=== PATIENT | male | born 1975 | race American Indian/Alaskan Native ===

== ENCOUNTER 2018-05-14 21:39 | Emergency (ER) | payer OTHER ==
[2018-05-14] MEDS ORDERED: DUONEB *Not for PRN Use IH ONE ×2 (21:46→22:03)
[2018-05-14] MEDS ORDERED: DELTASONE PO ONE (22:03)
--- NOTE | 2018-05-15 02:07 | Emergency Department Report ---
Upper Respiratory HPI - HPI Chief Complaint: Adult Asthma Stated Complaint: CP Time Seen by Provider: 05/15/18 01:50 URI Symptoms: Rhinorrhea: No, Sore Throat: No, Ear Pain: No, Cough: Yes, Shortness of Breath: Yes, Sick Contacts: No, Unable to Take Fluids: No, Urine Output Abnormal: No, Listless Behavior: No Other History: Patient states asthma attack today after environmental exposure patient has been out of her bit her on an inhaler for the last 2 weeks however symptoms have resolved after albuterol treatment given in triage today - Home Meds and Allergies Home Medications: Home Medications Medication Instructions Recorded Confirmed Last Taken ALBUTEROL Inhaler [Proair] 2 puff IH QID PRN 05/14/18 05/14/18 Unknown Previous Rx's Medication Instructions Recorded Last Taken Type ALBUTEROL Inhaler [ProAir HFA 2 puff IH QID PRN #1 inhalation 05/15/18 Unknown Rx Inhaler] Ibuprofen 800 mg PO TID PRN #30 tablet 05/15/18 Unknown Rx predniSONE [Deltasone] 40 mg PO QDAY 5 Days #10 tab 05/15/18 Unknown Rx Allergies/Adverse Reactions: Allergies Allergy/AdvReac Type Severity Reaction Status Date / Time No Known Allergies Allergy Verified 05/14/18 22:38 ED Review of Systems ROS: Stated complaint: CP Other details as noted in HPI Constitutional: denies: chills, fever Eyes: denies: eye pain, eye discharge, vision change ENT: denies: ear pain, throat pain Respiratory: cough, shortness of breath, wheezing Cardiovascular: denies: chest pain, palpitations Endocrine: no symptoms reported Gastrointestinal: denies: abdominal pain, nausea, diarrhea Genitourinary: denies: urgency, dysuria Musculoskeletal: denies: back pain, joint swelling, arthralgia Skin: denies: rash, lesions Neurological: denies: headache, weakness, paresthesias Psychiatric: denies: anxiety, depression Hematological/Lymphatic: denies: easy bleeding, easy bruising ED Past Medical Hx - Past Medical History Hx Asthma: Yes - Surgical History Past Surgical History?: No - Social History Smoking Status: Current Every Day Smoker Substance Use Type: None - Medications Home Medications: Home Medications Medication Instructions Recorded Confirmed Last Taken Type ALBUTEROL Inhaler [Proair] 2 puff IH QID PRN 05/14/18 05/14/18 Unknown History ALBUTEROL Inhaler [ProAir HFA 2 puff IH QID PRN #1 inhalation 05/15/18 Unknown Rx Inhaler] Ibuprofen 800 mg PO TID PRN #30 tablet 05/15/18 Unknown Rx predniSONE [Deltasone] 40 mg PO QDAY 5 Days #10 tab 05/15/18 Unknown Rx ED Bronchiolitis Physical Exam - Exam General: Vital signs noted. No distress. Alert and acting appropriately. HEENT: Yes Pharyngeal Erythema, No Conjuctival Injection, No Dry Mucous Membranes, No Rhinorrhea Ear: Neither TM Bulge, Neither TM Erythema, Neither EAC Discharge Neck: No Adenopathy, No Rigidity Lungs: Yes Clear Lung Sounds, Yes Good Air Exchange, No Wheezes, No Stridor, No Cough, No Nasal Flaring, No Retractions, No Use of Accessory Muscles Heart: Yes Regular, No Murmur Abdomen: Yes Normal Bowel Sounds, No Tenderness, No Peritoneal Signs Skin: No Rash, No Eczema Neurologic: Alert and oriented, no deficits. Musculoskeletal: Unremarkable. ED Physical Exam - General Limitations: No Limitations General appearance: alert, in no apparent distress - Head Head exam: Present: atraumatic, normocephalic - Eye Eye exam: Present: normal appearance, PERRL, EOMI Pupils: Present: normal accommodation - ENT ENT exam: Present: normal orophraynx, mucous membranes moist, TM's normal bilaterally, normal external ear exam - Neck Neck exam: Present: normal inspection, full ROM. Absent: tenderness, lymphadenopathy, thyromegaly - Respiratory Respiratory exam: Present: normal lung sounds bilaterally. Absent: respiratory distress, wheezes, rhonchi, stridor, chest wall tenderness - Cardiovascular Cardiovascular Exam: Present: regular rate, normal rhythm. Absent: normal heart sounds, systolic murmur, diastolic murmur, rubs, gallop - GI/Abdominal GI/Abdominal exam: Present: soft, normal bowel sounds. Absent: distended, tenderness, guarding, rebound, rigid, organomegaly, mass, bruit, pulsatile mass , hernia - Rectal Rectal exam: Present: deferred - Extremities Exam Extremities exam: Present: normal inspection, full ROM, normal capillary refill. Absent: tenderness, pedal edema, joint swelling, calf tenderness - Back Exam Back exam: Present: normal inspection, full ROM. Absent: tenderness, CVA tenderness (R), CVA tenderness (L), muscle spasm, paraspinal tenderness, vertebral tenderness, rash noted - Neurological Exam Neurological exam: Present: alert, oriented X3, CN II-XII intact, normal gait, reflexes normal. Absent: motor sensory deficit - Psychiatric Psychiatric exam: Present: normal affect, normal mood - Skin Skin exam: Present: warm, dry, intact, normal color. Absent: rash ED Course Vital Signs 05/14/18 21:53 Temperature 98 F Pulse Rate 78 Respiratory 18 Rate Blood Pressure 127/68 O2 Sat by Pulse 100 Oximetry ED Medical Decision Making - Medical Decision Making All symptoms improved patient appears well in no acute distress lungs are clear bilaterally no wheezing no stridor or rhonchi plan refill albuterol inhaler short burst steroids ibuprofen when necessary pain follow with some side medical clinic in 2-3 days for affiliation for PCP assigned patient verbalizes understanding and agreeable with discharge plan will be DC'd home in stable condition at this time Critical care attestation.: If time is entered above; I have spent that time in minutes in the direct care of this critically ill patient, excluding procedure time. ED Disposition Clinical Impression: Bronchitis Disposition: DC-01 TO HOME OR SELFCARE Is pt being admited?: No Does the pt Need Aspirin: No Condition: Good Instructions: Acute Bronchitis (ED) Prescriptions: ALBUTEROL Inhaler [ProAir HFA Inhaler] 2 puff IH QID PRN #1 inhalation PRN Reason: Shortness Of Breath Ibuprofen 800 mg PO TID PRN #30 tablet PRN Reason: pain / fever predniSONE [Deltasone] 40 mg PO QDAY 5 Days #10 tab Referrals: PRIMARY CARE, [Primary Care Provider] - 3-5 Days Forms: Work/School Release Form(ED) Time of Disposition: 02:10
[2018-05-15 02:25] VITALS: BP 122/70
== END 2018-05-15 02:25 | disposition home or self-care (01) ==
LOC: ED 21:39
DX: J45.909 Unspecified asthma, uncomplicated (principal); F17.200 Nicotine dependence, unspecified, uncomplicated
CPT/HCPCS: 94640; 99282; J7512

== ENCOUNTER 2018-05-20 20:13 | Emergency (ER) | payer OTHER ==
[2018-05-20 22:34] VITALS: BP 110/69
[2018-05-20] MEDS ORDERED: DECADRON IM ONE (23:59)
[2018-05-20] MEDS ORDERED: DUONEB *Not for PRN Use IH ONE (23:59)
[2018-05-20] MEDS ORDERED: XYLOCAINE 1% MPF 5 mL INFILTRATI ONE (23:59)
[2018-05-21] MEDS ORDERED: TYLENOL #3 PO ONE (00:02)
--- NOTE | 2018-05-21 00:03 | Emergency Department Report ---
ED Asthma HPI - General Chief Complaint: Adult Asthma Stated Complaint: SOB/ASTHMA Time Seen by Provider: 05/20/18 23:43 Source: patient Mode of arrival: Ambulatory Limitations: No Limitations - History of Present Illness Initial Comments: This is a 42-year-old female nontoxic, well nourished in appearance, no acute signs of distress presents to the ED with c/o of acute on chronic asthma exacerbation. Patient stated has been taking albuterol inhaler with minimal relief. Patient stated that she has seasonal allergies to pollen and has been outside that might have triggered her symptoms. Patient denies any cough. Patient also has a secondary complaint of a abscess to occipital scalp region times one year. Patient stated that he had this lines many times. Patient denies any trauma to the area. Patient denies any sick contact. Patient denies any recent travels, long car, recent hospital stays. Patient denies any calf pain or calf tenderness. Patient denies any chest pain, short of breath, fever, chills, nausea, vomiting, hemoptysis, numbness, tingling, headache or stiff neck. Past medical history includes asthma. Patient denies any drug allergies. MD Complaint: shortness of breath, wheezing, other (abscess) -: days(s) (2) Asthma History: childhood onset Severity: mild Context: none known Associated Symptoms: none Treatments Prior to Arrival: inhaled bronchodilator - Related Data Current Asthma Therapy: inhaled bronchodilator Home Medications Medication Instructions Recorded Confirmed Last Taken ALBUTEROL Inhaler [Proair] 2 puff IH QID PRN 05/14/18 05/14/18 Unknown Previous Rx's Medication Instructions Recorded Last Taken Type ALBUTEROL Inhaler [ProAir HFA 2 puff IH QID PRN #1 inhalation 05/15/18 Unknown Rx Inhaler] Ibuprofen 800 mg PO TID PRN #30 tablet 05/15/18 Unknown Rx predniSONE [Deltasone] 40 mg PO QDAY 5 Days #10 tab 05/15/18 Unknown Rx ALBUTEROL Inhaler [ProAir HFA 2 puff IH QID PRN #1 inhalation 05/21/18 Unknown Rx Inhaler] Prednisone [predniSONE 10 mg 10 mg PO .TAPER #1 tab.ds.pk 05/21/18 Unknown Rx (6-Day Pack, 21 Tabs)] Sulfamethoxazole/Trimethoprim 1 each PO BID #14 tablet 05/21/18 Unknown Rx [Bactrim DS TAB] traMADol [Ultram] 50 mg PO Q6HR PRN #14 tablet 05/21/18 Unknown Rx Allergies Allergy/AdvReac Type Severity Reaction Status Date / Time No Known Allergies Allergy Verified 05/14/18 22:38 ED Review of Systems ROS: Stated complaint: SOB/ASTHMA Other details as noted in HPI Constitutional: denies: chills, fever Eyes: denies: eye pain, eye discharge, vision change ENT: denies: ear pain, throat pain Respiratory: wheezing. denies: cough, shortness of breath Cardiovascular: denies: chest pain, palpitations Endocrine: no symptoms reported Gastrointestinal: denies: abdominal pain, nausea, diarrhea Genitourinary: denies: urgency, dysuria Musculoskeletal: denies: back pain, joint swelling, arthralgia Skin: denies: rash, lesions Neurological: denies: headache, weakness, paresthesias Psychiatric: denies: anxiety, depression Hematological/Lymphatic: denies: easy bleeding, easy bruising ED Past Medical Hx - Past Medical History Previous Medical History?: Yes Hx Asthma: Yes - Surgical History Past Surgical History?: No - Social History Smoking Status: Current Every Day Smoker Substance Use Type: None - Medications Home Medications: Home Medications Medication Instructions Recorded Confirmed Last Taken Type ALBUTEROL Inhaler [Proair] 2 puff IH QID PRN 05/14/18 05/14/18 Unknown History ALBUTEROL Inhaler [ProAir HFA 2 puff IH QID PRN #1 inhalation 05/15/18 Unknown Rx Inhaler] Ibuprofen 800 mg PO TID PRN #30 tablet 05/15/18 Unknown Rx predniSONE [Deltasone] 40 mg PO QDAY 5 Days #10 tab 05/15/18 Unknown Rx ALBUTEROL Inhaler [ProAir HFA 2 puff IH QID PRN #1 inhalation 05/21/18 Unknown Rx Inhaler] Prednisone [predniSONE 10 mg 10 mg PO .TAPER #1 tab.ds.pk 05/21/18 Unknown Rx (6-Day Pack, 21 Tabs)] Sulfamethoxazole/Trimethoprim 1 each PO BID #14 tablet 05/21/18 Unknown Rx [Bactrim DS TAB] traMADol [Ultram] 50 mg PO Q6HR PRN #14 tablet 05/21/18 Unknown Rx ED Physical Exam - General Limitations: No Limitations General appearance: alert, in no apparent distress - Head Head exam: Present: atraumatic, normocephalic - Expanded Head Exam Expanded 1 - 1 cm induration or fluctuance. Tender to status. Slight purulent drainage. - Eye Eye exam: Present: normal appearance Pupils: Present: normal accommodation - ENT ENT exam: Present: normal exam, mucous membranes moist - Neck Neck exam: Present: normal inspection, full ROM. Absent: tenderness, meningismus, lymphadenopathy - Respiratory Respiratory exam: Present: normal lung sounds bilaterally, wheezes (upper and lower lobes). Absent: respiratory distress, rales, rhonchi, stridor, chest wall tenderness, accessory muscle use, decreased breath sounds, prolonged expiratory - Cardiovascular Cardiovascular Exam: Present: regular rate, normal rhythm, normal heart sounds. Absent: bradycardia, tachycardia, irregular rhythm, systolic murmur, diastolic murmur, rubs, gallop - GI/Abdominal GI/Abdominal exam: Present: soft, normal bowel sounds. Absent: distended, tenderness, guarding, rebound, rigid, diminished bowel sounds - Rectal Rectal exam: Present: deferred - Extremities Exam Extremities exam: Present: normal inspection, full ROM, normal capillary refill - Back Exam Back exam: Present: normal inspection, full ROM - Neurological Exam Neurological exam: Present: alert, oriented X3, normal gait - Psychiatric Psychiatric exam: Present: normal affect, normal mood - Skin Skin exam: Present: warm, dry, intact, normal color. Absent: rash ED Course Vital Signs 05/20/18 05/21/18 22:26 00:25 Temperature 98.4 F Pulse Rate 91 H Pulse Rate [ 91 H Posterior Bilateral Throughout] Respiratory 18 Rate [Posterior Bilateral Throughout] Blood Pressure 110/69 - Reevaluation(s) Reevaluation #1: 05/21/18 00:04 Patient is speaking in full sentences with no signs of distress noted. - I & D Left Head Type of Procedure: Complex Site: left occipital head Blade Size: 11 I & D Procedure: betadine prep, sterile drapes applied, sterile dressing applied , gauze wick placed Progress: Under sterile field, I used Betadine to cleanse the area. I then used 1% lidocaine plain with 25-gauge 5/8 needle to inject area for anesthetic purposes. Total volume injected 2 mL. I then used an 11 blade to make a 1 cm incision. About 2 mL's of purulent drainage has been noted. I then used a hemostat to break the abscess formation. I then used sterile 0.9% normal saline flush to flush the wound with total volume of 40 mL used. I then put a 1 /4 iodoform packing to the incision. A sterile 4 x 4 with tape has been applied as dressing. Bleeding is under control. Patient tolerated the procedure well with no signs of distress noted. ED Medical Decision Making - Medical Decision Making This is a 7-year-old male that presents with asthma exacerbation and abscess. Patient is stable and was examined by me. Chest x-ray has been obtained and dictated by the radiologist within normal limits. Patient is notified of the x- ray report with no questions noted by the patient. Patient did receive DuoNeb in the ED which patient the symptoms has resolved and subsided. Posttreatment and there is no wheezing upon auscultation. Patient is discharged with albuterol and prednisone. Also, the incision and drainage and has been performed and patient tolerated well. A sterile dressing has been applied. Patient was educated on proper wound care. Patient is discharged with Bactrim and Ultram and was instructed not to operate any machinery while taking Ultram due to drowsiness. Patient was instructed to return in 2 days for packing removal. Patient was referred to Follow-up with a primary care doctor in 3-5 days or if symptoms worsen and continue return to emergency room as soon as possible. At time of discharge, the patient does not seem toxic or ill in appearance. No acute signs of distress noted. Patient agrees to discharge treatment plan of care. No further questions noted by the patient. This chart is dictated with using [employer] Critical care attestation.: If time is entered above; I have spent that time in minutes in the direct care of this critically ill patient, excluding procedure time. ED Disposition Clinical Impression: Abscess, Encounter for incision and drainage procedure Asthma Qualifiers: Asthma severity: mild Asthma persistence: intermittent Asthma complication type : unspecified Qualified Code(s): J45.20 - Mild intermittent asthma, uncomplicated Disposition: TO HOME OR SELFCARE Is pt being admited?: No Does the pt Need Aspirin: No Condition: Stable Instructions: Asthma (ED), Abscess Incision and Drainage (ED), Abscess (ED) Additional Instructions: Follow-up with a primary care doctor in 3-5 days or if symptoms worsen and continue return to emergency room as soon as possible. Return in 2 days for packing removal and reassessment of abscess. Do not consume E machinery while taking Ultram due to possible drowsiness. Prescriptions: ALBUTEROL Inhaler [ProAir HFA Inhaler] 2 puff IH QID PRN #1 inhalation PRN Reason: Shortness Of Breath Prednisone [predniSONE 10 mg (6-Day Pack, 21 Tabs)] 10 mg PO .TAPER #1 tab.ds.pk Sulfamethoxazole/Trimethoprim [Bactrim DS TAB] 1 each PO BID #14 tablet traMADol [Ultram] 50 mg PO Q6HR PRN #14 tablet PRN Reason: Pain Referrals: PRIMARY CARE, [Primary Care Provider] - 3-5 Days DOMENIC COOLEY MD [Staff Physician] - 3-5 Days [facility] [Outside] - 3-5 Days [facility] [Outside] - 3-5 Days Forms: Work/School Release Form(ED)
--- NOTE | 2018-05-21 00:35 | XRay Report ---
FINAL REPORT PROCEDURE: XR CHEST ROUTINE 2V TECHNIQUE: PA and lateral chest radiographs were obtained. CPT 98515 HISTORY: wheezing COMPARISON: No prior studies are available for comparison. FINDINGS: Heart: Normal. Mediastinum/Vessels: Normal. Lungs/Pleural space: Normal. Bony thorax: No acute osseous abnormality. Other: IMPRESSION: Normal examination.
== END 2018-05-21 01:16 | disposition home or self-care (01) ==
LOC: ED 20:13
DX: L02.811 Cutaneous abscess of head [any part, except face] (principal); J45.20 Mild intermittent asthma, uncomplicated; F17.200 Nicotine dependence, unspecified, uncomplicated
CPT/HCPCS: 71046; 94640

== ENCOUNTER 2019-11-06 02:33 | Emergency (ER) | payer MEDICAID, OTHER ==
[2019-11-06] MEDS ORDERED: IPRATROPIUM/ALBUTEROL SULFATE 3 ML AMPUL.NEB IH ONE (06:09)
[2019-11-06] MEDS ORDERED: DEXAMETHASONE 4 MG TAB PO ONE (06:10)
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
--- NOTE | 2019-11-06 06:48 | XRay Report ---
CHEST 2 VIEWS INDICATION / CLINICAL INFORMATION: SOB. COMPARISON: 2 views of the chest from 05/20/2018. FINDINGS: SUPPORT DEVICES: None. HEART / MEDIASTINUM: No significant abnormality. LUNGS / PLEURA: No significant pulmonary or pleural abnormality. No pneumothorax. ADDITIONAL FINDINGS: No significant additional findings. IMPRESSION: 1. No acute abnormality of the chest. Signer Name: Dieter Lees MD Signed: 11/06/2019 6:43 AM Workstation Name: [id number]
[2019-11-06 07:08] LABS: Benzodiazepines Screen,Urine PRESUMPTIVE NEGATIVE; Cannabinoid Screen,Urine PRESUMPTIVE NEGATIVE; Cocaine Screen,Urine PRESUMPTIVE NEGATIVE; Methadone Screen,Urine PRESUMPTIVE NEGATIVE; Opiate Screen,Urine PRESUMPTIVE NEGATIVE
[2019-11-06 07:23] LABS: Basophils # (Auto) 0.1 K/mm3 (0.0-0.1); Basophils % (Auto) 0.8 % (0.0-1.8); Eosinophils # (Auto) 0.1 K/mm3 (0.0-0.4); Eosinophils % (Auto) 1.5 % (0.0-4.3); Hematocrit 45.6 % (35.5-45.6); Lymphocytes # (Auto) 2.1 K/mm3 (1.2-5.4); Lymphocytes % (Auto) 25.4 % (13.4-35.0); Mean Corpuscular HGB Conc 33 % (32-34); Mean Corpuscular Volume 86 fl (84-94); Monocytes # (Auto) 0.8 K/mm3 (0.0-0.8); Monocytes % (Auto) 9.4 % (0.0-7.3); Platelet Count 293 K/mm3 (140-440); Red Blood Count 5.28 M/mm3 (3.65-5.03)
[2019-11-06 07:30] LABS: Amphetamine Screen,Urine PRESUMPTIVE POSITIVE
[2019-11-06 07:47] LABS: Alanine Aminotransferase 63 units/L (7-56); Albumin 4.2 g/dL (3.9-5); BUN/Creatinine Ratio 33; Blood Urea Nitrogen 26 mg/dL (9-20); Calcium 9.6 mg/dL (8.4-10.2); Hemolysis Index 3
[2019-11-06 09:06] VITALS: BP 135/64
== END 2019-11-06 09:42 | disposition home or self-care (01) ==
LOC: ED 02:33
DX: J98.01 Acute bronchospasm (principal); F15.10 Other stimulant abuse, uncomplicated; J45.909 Unspecified asthma, uncomplicated
CPT/HCPCS: 36415; 71046; 80053; 80307; 84484; 85025; 93005; 93010; 99284; J8540; 80320; G0480